=== PATIENT | female | born 1985 | race African-American/Black ===

== ENCOUNTER 2017-07-03 19:47 | Inpatient (IN) | payer MEDICAID ==
[~2017-07-03] VITALS: Ht 167.6 cm; Wt 76.7 kg
[2017-07-03] MEDS ORDERED: LACTATED RINGERS 1,000 ML IV SCH (20:04)
[2017-07-03] MEDS ORDERED: DEXT 5%/LR + PITOCIN 20UNITS/L 1,000 ML IV SCH (20:04)
[2017-07-03] MEDS ORDERED: METHYLERGONOVINE MALEATE 0.2 MG/ML IM PRN (20:15)
[2017-07-03] MEDS ORDERED: LIDOCAINE HCL 1% 20ML VIAL (Pyxis) INJ INFIL SCH (20:15)
[2017-07-03] MEDS ORDERED: BUTORPHANOL TARTRATE 2 MG/ML VIAL IV PRN (20:15)
[2017-07-03] MEDS ORDERED: CARBOPROST TROMETHAMINE 250 MCG/ML AMPUL IM PRN (20:15)
[2017-07-03] MEDS ORDERED: MISOPROSTOL 100MCG TABLET VG NR (20:15)
[2017-07-03] MEDS ORDERED: NALOXONE HCL 0.4 MG/ML 1ML VIAL IM PRN (20:15)
[2017-07-03 20:43] LABS: BASOPHILS % 0.5 % (0.0-2.0); EOSINOPHILS % 0.6 % (0.0-5.0); HEMATOCRIT. 37.9 % (36.0-48.0); HEMOGLOBIN. 12.2 g/dL (12.0-16.0); LYMPHOCYTES % 26.9 % (20.0-50.0); MEAN CORPUSCULAR HEMOGLOBIN 28.5 pg (28.0-32.0); MEAN CORPUSCULAR VOLUME 88.6 fL (81.0-99.0); MEAN PLATELET VOLUME 8.1 fl (7.4-10.4); MONOCYTES % 7.2 % (2.0-8.0); NEUTROPHILS % 64.8 % (40.0-76.0); PLATELET 161 x1000/uL (130-400); RED BLOOD CELL COUNT 4.28 mill/uL (4.2-5.4); RED CELL DISTRIBUTION WIDTH 14.1 % (11.6-14.6)
[2017-07-03 20:49] LABS: PARTIAL THROMBOPLASTIN TIME 33.7 sec (23.4-31.0)
[2017-07-03 20:52] LABS: CLARITY URINE CLEAR (CLEAR); COLOR URINE YELLOW (YELLOW); GLUCOSE URINE NEGATIVE (NEGATIVE); KETONES URINE 2+ (NEGATIVE); LEUKOCYTE ESTERASE URINE 2+ (NEGATIVE); NITRITE URINE NEGATIVE (NEGATIVE); OCCULT BLOOD URINE 2+ (NEGATIVE); PH URINE 6.5 (4.5-8.0); PROTEIN URINE NEGATIVE (NEGATIVE); SPECIFIC GRAVITY URINE 1.016 (1.005-1.030); UROBILINOGEN URINE 0.2 E.U./dL (0.2-1.0)
[2017-07-03] MEDS ORDERED: AMPICILLIN 2,000 MG in SODIUM CHLORIDE 0.9% 100 ML IV NR (21:00)
[2017-07-03 21:05] LABS: *AMPHETAMINES SCREEN URINE NEGATIVE (NEGATIVE); *BARBITURATES SCREEN URINE NEGATIVE (NEGATIVE); *BENZODIAZEPINES SCREEN URINE NEGATIVE (NEGATIVE); *COCAINE SCREEN URINE NEGATIVE (NEGATIVE); CANNABINOID URINE SCREEN NEGATIVE (NEGATIVE); METHADONE URINE SCREEN NEGATIVE (NEGATIVE); OPIATES URINE SCREEN NEGATIVE (NEGATIVE); PHENCYCLIDINE URINE SCREEN NEGATIVE (NEGATIVE)
[2017-07-03 21:21] LABS: RUBELLA IGG 49.7 IU/mL (4.99-10)
[2017-07-03 21:24] LABS: HEPATITIS B SURFACE ANTIGEN REACTIVE PEND CONFIR
[2017-07-04] MEDS ORDERED: BENZOCAINE/LANOLIN/ALOE VERA SPRAY TOP PRN
[2017-07-04] MEDS ORDERED: BISACODYL 10MG SUPP PR PRN
[2017-07-04] MEDS ORDERED: IBUPROFEN 400MG TABLET PO PRN
[2017-07-04] MEDS ORDERED: GLYCERIN/WITCH HAZEL LEAF MEDICATED PAD TOP PRN
[2017-07-04] MEDS ORDERED: HEMORRHOIDAL SUPP PR PRN
[2017-07-04] MEDS ORDERED: ACETAMINOPHEN WITH CODEINE 300/30MG TABLET PO PRN
[2017-07-04] MEDS: DEXT 5%/LR + PITOCIN 20UNITS/L 1,000 ML IV SCH ×2 (00:21→02:05)
[2017-07-04 02:00] VITALS: BP 118/70
[2017-07-04] MEDS ORDERED: PNV11TAB PO (02:19)
[2017-07-04] MEDS ORDERED: FERR325T6 PO (02:20)
[2017-07-04 03:00] VITALS: BP 116/68
[2017-07-04] MEDS ORDERED: AMPICILLIN 1,000 MG in SODIUM CHLORIDE 0.9% 50 ML IV SCH (03:00)
[2017-07-04 04:00] VITALS: BP 115/71
[2017-07-04 08:30] LABS: BASOPHILS % 0.1 % (0.0-2.0); EOSINOPHILS % 0.2 % (0.0-5.0); HEMATOCRIT. 35.4 % (36.0-48.0); HEMOGLOBIN. 11.7 g/dL (12.0-16.0); LYMPHOCYTES % 15.7 % (20.0-50.0); MEAN CORPUSCULAR HEMOGLOBIN 28.3 pg (28.0-32.0); MEAN CORPUSCULAR VOLUME 85.2 fL (81.0-99.0); MEAN PLATELET VOLUME 7.7 fl (7.4-10.4); MONOCYTES % 7.7 % (2.0-8.0); NEUTROPHILS % 76.3 % (40.0-76.0); PLATELET 199 x1000/uL (130-400); RED BLOOD CELL COUNT 4.15 mill/uL (4.2-5.4)
[2017-07-04] MEDS: MAGNESIUM/ALUMINUM HYDROXIDE/SIMETHICONE 30ML UDC PO SCH ×4 (08:58→21:00)
[2017-07-04] MEDS: SIMETHICONE 80MG TABLET CHEW PO SCH ×4 (08:59→21:00)
[2017-07-04 09:00] VITALS: BP 125/80
[2017-07-04] MEDS ORDERED: LANOLIN OINT 0.25 GM TUBE TOP NR (15:45)
[2017-07-04 15:59] VITALS: BP 127/79
[2017-07-04 20:00] VITALS: BP 102/63
[2017-07-04] MEDS ORDERED: DOCUSATE SODIUM 100MG CAPSULE PO SCH (21:00)
[2017-07-05] VITALS: BP 105/68
[2017-07-05 07:30] VITALS: BP 110/80
== END 2017-07-05 16:40 | disposition home or self-care (01) | DRG 560 ==
LOC: L&D 19:47 → OBSVTOIN 19:47 → 7EST PP/OB 07-04 02:00
PROVIDERS: ADMIT Obstetrics & Gynecology; ATTEND Obstetrics & Gynecology
PROC: 10D07Z6 Extraction of Products of Conception, Vacuum, Via Natural or Artificial Opening (ICD-10-PCS; principal; 2017-07-03 23:03)
DX: O48.0 Post-term pregnancy (principal); O69.81X0 Labor and delivery complicated by cord around neck, without compression, not applicable or unspecified; Z37.0 Single live birth; Z3A.38 38 weeks gestation of pregnancy
CPT/HCPCS: 36415; 80305; 81001; 85025; 85610; 85730; 86592; 86703; 86762; 86850; 86900; 87340; 99281; G0378; J0290; J0595; J2310; J2590; J3490; J7050; J7120